=== PATIENT | male | born 2000 | race Hispanic/Latino ===

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

== ENCOUNTER → 2021-12-21 08:34 | Outpatient (CLI) | payer OTHER, MEDICAID, SELFPAY ==
--- NOTE | 2021-12-21 08:35 | DI.RAD.S_ITS ---
PROCEDURE: XR ANKLE LT MIN 3V INDICATIONS: left ankle pain TECHNIQUE: 3 views of the ankle were acquired. COMPARISON: None. FINDINGS: Bones: No fractures or dislocations. Ankle mortise is normally aligned. No suspicious bony lesions. Small dorsal and plantar calcaneal bone spurs. Mild tibiotalar and midfoot osteoarthritis. Soft tissues: No tibiotalar joint effusion. Achilles tendon appears normal. IMPRESSION: No fracture. No acute osseous lesion. If symptoms and/or clinical suspicion for pathology persists, further assessment with repeat radiographs (7-10 days) or advanced imaging (e.g. CT, MRI or bone scan) should be considered. Mild osteoarthritis. Small calcaneal bone spurs. Dictated by: Celine Sanderson MD, PhD on 12/21/2021 at 9:59 Approved by: Celine Sanderson MD, PhD on 12/21/2021 at 10:00
== END ==
PROVIDERS: Family Provider Pediatrics; PCP Pediatrics; Referring Provider Nurse Practitioner Family; Visit Provider Nurse Practitioner Family
DX: S96.912A Strain of unspecified muscle and tendon at ankle and foot level, left foot, initial encounter (principal); M19.072 Primary osteoarthritis, left ankle and foot; M77.32 Calcaneal spur, left foot; X58.XXXA Exposure to other specified factors, initial encounter
CPT/HCPCS: 73610

== ENCOUNTER → 2022-03-22 14:25 | Outpatient (CLI) | payer OTHER, MEDICAID, SELFPAY ==
[2022-03-22 15:29] LABS: Hemoglobin A1C% w Est Avg Glu 5.6 % (4.0-6.0)
[2022-03-22 16:13] LABS: Alanine Aminotransferase 33 IU/L (<50); Albumin 4.4 g/dL (3.5-5.0); Albumin Globulin Ratio 1.1 (1.0-2.8); Alkaline Phosphatase 92 U/L (38-126); Aspartate Aminotransferase 26 IU/L (17-59); BUN Creatinine Ratio 16.9 (6-22); Bilirubin Total 0.6 mg/dL (0.2-1.3); Blood Urea Nitrogen 12 mg/dL (9-20); Calcium 8.6 mg/dL (8.4-10.2); Carbon Dioxide 24 mmol/L (22-32); Chloride 105 mmol/L (98-107); Cholesterol 164 mg/dL (140-199); Estimated Glomerular Filt Rate > 60 mL/min (>60); Globulin 3.9 g/dL (1.7-4.1); Glucose 92 mg/dL (70-100); HDL Cholesterol 32 mg/dL (40-60); HEMOLYSIS < 15 (0-50); LDL Cholesterol Calculated 117 mg/dL (<100); Potassium 4.1 mmol/L (3.4-5.1); Sodium 139 mmol/L (137-145); Total Protein 8.3 g/dL (6.3-8.2); Triglycerides 76 mg/dL (35-150)
== END ==
PROVIDERS: Family Provider Pediatrics; Referring Provider Registered Nurse Diabetes Educator; Visit Provider Registered Nurse Diabetes Educator
DX: Z00.00 Encounter for general adult medical examination without abnormal findings (principal); Z68.42 Body mass index [BMI] 45.0-49.9, adult
CPT/HCPCS: 36415; 80053; 80061; 83036; 84443

== ENCOUNTER → 2022-05-02 13:19 | Outpatient (CLI) | payer OTHER, MEDICAID, SELFPAY ==
--- NOTE | 2022-05-02 13:20 | DI.RAD.S_ITS ---
PROCEDURE: XR LUMBAR SPINE MIN 4V INDICATIONS: eval RLE radiculopathy and R hip pain TECHNIQUE: 5 views of the lumbar spine acquired, including flexion and extension views. COMPARISON: None. FINDINGS: Bones: 5 nonrib-bearing vertebrae are present. There is normal bony alignment. No vertebral body compression fractures. No suspicious bony lesions. Soft tissues: Overlying bowel gas pattern is normal. No suspicious soft tissue calcifications. Oblique views unremarkable IMPRESSION: Unremarkable lumbar spine radiographs Approved by: Ramón Lacy M.D. on 05/02/2022 at 17:19
--- NOTE | 2022-05-02 13:20 | DI.RAD.S_ITS ---
PROCEDURE: XR HIP W PEL IF DONE RT 2V INDICATIONS: eval RLE radiculopathy and R hip pain TECHNIQUE: 2 views of the hip were acquired. COMPARISON: [facility], , XR HIP W PEL IF DONE RT 2V, 03/17/2018, 14:31. FINDINGS: Bones: No fractures or dislocations. No suspicious bony lesions. The visualized pelvic ring appears intact. Soft tissues: No suspicious soft tissue calcifications or masses. IMPRESSION: Unremarkable right hip radiographs Approved by: Ramón Lacy M.D. on 05/02/2022 at 17:36
== END ==
PROVIDERS: Family Provider Pediatrics; Referring Provider Registered Nurse Diabetes Educator; Visit Provider Registered Nurse Diabetes Educator
DX: M54.10 Radiculopathy, site unspecified (principal); G89.29 Other chronic pain; M25.551 Pain in right hip
CPT/HCPCS: 72110; 73502

== ENCOUNTER 2022-10-01 13:50 | Emergency (ER) | payer OTHER, MEDICAID, SELFPAY ==
[2022-10-01 14:10] VITALS: BP 164/102; PULSE 99; RESP 12; TEMP 36.5; O2SAT 99; BMI 50.2
[2022-10-01] MEDS: KETOROLAC 30 MG/ML VIAL IM (17:38)
[2022-10-01] MEDS: CYCLOBENZAPRINE 10 MG TABLET PO (17:38)
[2022-10-01] MEDS: LIDOCAINE PATCH 1 EACH ADH..PATCH TOP (17:38)
[2022-10-01 17:46] VITALS: BP 163/112; PULSE 85; O2SAT 100
--- NOTE | 2022-10-01 18:16 | ED.BACK ---
HPI - Back Pain/Injury <Tonny Diego PA-C - Last Filed: 10/01/22 20:07> General Chief Complaint: Back Pain/Injury Stated Complaint: Lower back pain, all the way down to R leg x3days Time Seen by Provider: 10/01/22 16:52 History of Present Illness HPI Narrative: 21-year-old male with past medical history lower back pain, sciatica presents to the ED with 3 days of right-sided lower back pain radiates down the back of his right leg. 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 Patient denies fevers, chills, neck pain, neck stiffness, saddle paresthesias, dysuria, urinary hesitancy, numbness, tingling, weakness. Patient is able to walk normally. Patient states that his pain has been did not improve with ibuprofen. Related Data Home Medications Medication Instructions Recorded Confirmed acetaminophen 500 mg tablet 500 mg PO Q6H PRN 03/22/22 05/17/22 (Tylenol Extra Strength) Previous Rx's Medication Instructions Recorded meloxicam 7.5 mg tablet 7.5 mg PO BID PRN back pain #60 05/17/22 tabs methocarbamol 750 mg tablet 750 mg PO QID PRN muscle spasm #30 05/17/22 tabs Allergies Allergy/AdvReac Type Severity Reaction Status Date / Time No Known Drug Allergies Allergy Verified 10/01/22 14:14 Review of Systems <Tonny Diego PA-C - Last Filed: 10/01/22 20:07> Review of Systems ROS Unobtainable: All systems reviewed & are unremarkable except as noted in HPI and below Constitutional Constitutional: Denies chills, Denies fatigue, Denies fever(s), Denies frequent falls, Denies lethargy and Denies weakness Eyes Eyes: Denies change in vision, Denies eye discharge, Denies irritation and Denies loss of vision ENT Ears, Nose, Mouth, and Throat: Denies change in voice, Denies dizziness, Denies neck pain, Denies sore throat and Denies throat swelling Cardiovascular Cardiovascular: Denies chest pain, Denies irregular heart rhythm, Denies lightheadedness, Denies palpitations, Denies dyspnea, Denies dyspnea on exertion and Denies orthopnea Respiratory Respiratory: Denies cough, Denies dyspnea, Denies dyspnea on exertion and Denies wheezing Gastrointestinal Gastrointestinal: Denies abdominal pain, Denies change in bowel habits, Denies diarrhea, Denies nausea and Denies vomiting Genitourinary Genitourinary: Denies hematuria, Denies flank pain, Denies urinary incontinence and Denies urinary urgency Musculoskeletal Musculoskeletal: Reports back pain, Denies muscle weakness, Denies neck pain, Denies numbness, Reports radiating pain into limb and Denies tingling Integumentary/Breasts Skin/Breast: Denies pruritus, Denies erythema, Denies rash and Denies wounds Neurologic Neurologic: Denies behavioral changes, Denies confusion, Denies dizziness, Denies frequent falls, Denies loss of vision, Denies numbness, Denies tingling and Denies weakness Psychiatric Psychiatric: Denies anxiety, Denies behavioral changes, Denies confusion, Denies depression, Denies homicidal ideation and Denies suicidal ideation Endocrine Endocrine: Denies fatigue, Denies flushing and Denies palpitations Hematologic/Lymphatic Hematologic/Lymphatic: Denies easy bruising Allergic/Immunologic Allergic/Immunologic: Denies urticaria, Denies throat swelling and Denies wheezing Patient History <Tonny Diego PA-C - Last Filed: 10/01/22 20:07> Surgical History Anesthesia History of ankle surgery (~2012) Social History Smoking Status: Never smoker Smoking Status: Never smoker Substance Use Type: does not use Exam <Tonny Diego PA-C - Last Filed: 10/01/22 20:07> Narrative Exam Narrative: Const General:?cooperative, healthy appearing and comfortable [facility] Head:?normal to inspection Ears:?hearing grossly normal bilaterally Nose:?external nose normal Face and sinus:?normal facial exam and sinuses nontender Mouth:?oral mucosae normal Throat:?posterior oropharynx normal Eyes General:?appearance normal, both eyes and all related structures Neck Neck:?normal visual inspection and no lymphadenopathy noted Resp Effort & Inspection:?normal respiratory effort Auscultation:?clear to auscultation bilaterally Cardio Rate:?regular rate Rhythm:?regular rhythm Musculoskeletal No midline tenderness to palpation. No paraspinal tenderness to palpation. No bruising, deformities. Positive SLR. Gait is normal. Strength and sensation intact. Full range of motion. Patient is neurovascularly intact. Neuro General:?patient alert, patient awake and patient oriented x3 Initial Vital Signs Initial Vital Signs: Vital Signs Temperature 97.7 F 10/01/22 14:10 Pulse Rate 99 H 10/01/22 14:10 Respiratory Rate 12 10/01/22 14:10 Blood Pressure 164/102 H 10/01/22 14:10 Pulse Oximetry 99 10/01/22 14:10 Oxygen Delivery Method Room Air 10/01/22 14:10 <Nba Muhammad DO - Last Filed: 10/08/22 07:33> Initial Vital Signs Initial Vital Signs: Vital Signs Temperature 97.7 F 10/01/22 14:10 Pulse Rate 99 H 10/01/22 14:10 Respiratory Rate 12 10/01/22 14:10 Blood Pressure 164/102 H 10/01/22 14:10 Pulse Oximetry 99 10/01/22 14:10 Oxygen Delivery Method Room Air 10/01/22 14:10 Course <Tonny Diego PA-C - Last Filed: 10/01/22 20:07> Orders Ordered: Discontinued Medications Cyclobenzaprine HCl (Cyclobenzaprine 10 Mg Tablet) 10 mg PO NOW ONE Stop: 10/01/22 17:26 Last Admin: 10/01/22 17:38 Dose: 10 mg Documented By: VERITO Ketorolac Tromethamine (Ketorolac 30 Mg/Ml Vial) 30 mg IM NOW ONE Stop: 10/01/22 17:26 Last Admin: 10/01/22 17:38 Dose: 30 mg Documented By: VERITO Lidocaine (Lidocaine Patch 1 Each Adh..Patch) 1 each TOP NOW ONE Stop: 10/01/22 17:26 Last Admin: 10/01/22 17:38 Dose: 1 each Documented By: RL Vital Signs Vital signs: Vital Signs - 8 hr 10/01/22 14:10 10/01/22 17:46 Temperature 97.7 F Pulse Rate 99 H 85 Respiratory Rate 12 Blood Pressure 164/102 H 163/112 H Pulse Oximetry 99 100 Oxygen Delivery Method Room Air Room Air <Nba Muhammad DO - Last Filed: 10/08/22 07:33> Orders Ordered: Discontinued Medications Cyclobenzaprine HCl (Cyclobenzaprine 10 Mg Tablet) 10 mg PO NOW ONE Stop: 10/01/22 17:26 Last Admin: 10/01/22 17:38 Dose: 10 mg Documented By: VERITO Ketorolac Tromethamine (Ketorolac 30 Mg/Ml Vial) 30 mg IM NOW ONE Stop: 10/01/22 17:26 Last Admin: 10/01/22 17:38 Dose: 30 mg Documented By: VERITO Lidocaine (Lidocaine Patch 1 Each Adh..Patch) 1 each TOP NOW ONE Stop: 10/01/22 17:26 Last Admin: 10/01/22 17:38 Dose: 1 each Documented By: RL Vital Signs Vital signs: Vital Signs - 8 hr 10/01/22 14:10 10/01/22 17:46 Temperature 97.7 F Pulse Rate 99 H 85 Respiratory Rate 12 Blood Pressure 164/102 H 163/112 H Pulse Oximetry 99 100 Oxygen Delivery Method Room Air Room Air MDM - Back Pain/Injury <Tonny Diego PA-C - Last Filed: 10/01/22 20:07> Lab Data Labs: Urine Dip Bedside Urine Glucose Negative Bedside Urine Bilirubin - Negative Bedside Urine Ketone - Negative Urine Specific [place] 1.015 Bedside Urine Occult Blood - Negative Bedside Urine pH 7.0 Bedside Urine Protein - Negative Bedside Urine Urobilinogen - Negative Bedside Urine Nitrite - Negative Bedside Urine Leukocytes - Negative Esterase MDM Narrative Medical decision making narrative: 21-year-old male with past medical history lower back pain, sciatica presents to the ED with 3 days of right-sided lower back pain radiates down the back of his right leg. Physical exam and history is consistent with musculoskeletal sprain/strain. There is no red flag symptoms. Will treat with ketorolac, lidocaine patch, Flexeril. Will reassess. Patient's symptoms improved with medications. Prescribed Flexeril. Recommend follow-up with PCP for PT referral. ED return precautions were discussed with patient. Patient verbalized understanding. Medical records reviewed: Yes <Nba Muhammad DO - Last Filed: 10/08/22 07:33> Lab Data Labs: Urine Dip Bedside Urine Glucose Negative Bedside Urine Bilirubin - Negative Bedside Urine Ketone - Negative Urine Specific [place] 1.015 Bedside Urine Occult Blood - Negative Bedside Urine pH 7.0 Bedside Urine Protein - Negative Bedside Urine Urobilinogen - Negative Bedside Urine Nitrite - Negative Bedside Urine Leukocytes - Negative Esterase Discharge Plan Departure Patient Disposition: Home Clinical Impression: Lower back pain Instructions: DI for Low Back Pain Activity Restrictions/Additional Instructions: You were evaluated in the ED today for lower back pain. Your symptoms are likely due to a musculoskeletal sprain/strain from the weightlifting. Your symptoms improved with the lidocaine patch, Flexeril, Toradol. You may use Salonpas which is an [id number] lidocaine patch. You are being prescribed Flexeril for the next few days. You may take it with ibuprofen or Aleve. Return to the ED if you note any numbness, tingling, weakness, urinary problems. Prescriptions: No Action acetaminophen [Tylenol Extra Strength] 500 mg tablet 500 mg PO Q6H PRN methocarbamol 750 mg tablet 750 mg PO QID PRN (Reason: muscle spasm) Qty: 30 3RF meloxicam 7.5 mg tablet 7.5 mg PO BID PRN (Reason: back pain) Qty: 60 2RF Referrals: Roscoe Goodwin ARNP [Primary Care Provider] - Stand Alone Forms: Patient Portal/API <Nba Muhammad DO - Last Filed: 10/08/22 07:33> Cosign ED Attending Cosignature Attestation: Dr Muhammad Co-Sign Statement: I was available for consultation during this patient's emergency department visit. This chart is signed by myself for administrative purposes only. I did not have direct contact with this patient during this visit. They were seen independently by the APC.
== END 2022-10-01 19:18 | disposition home or self-care (01) ==
PROVIDERS: Emergency Provider Student in an Organized Health Care Education/Training Program; Family Provider Pediatrics; PCP Registered Nurse Diabetes Educator
DX: M54.50 Low back pain, unspecified (principal)
CPT/HCPCS: 81003; 96372; 99283; 99284; J1885

== ENCOUNTER → 2023-04-09 10:46 | Outpatient (CLI) | payer OTHER, MEDICAID, SELFPAY ==
--- NOTE | 2023-04-09 10:47 | DI.RAD.S_ITS ---
PROCEDURE: XR LUMBAR SPINE 2-3V INDICATIONS: disks, spurs? - chronic LBP right sciatica TECHNIQUE: 3 views of the lumbar spine were acquired. COMPARISON: [facility], , XR LUMBAR SPINE MIN 4V, 05/02/2022, 13:21. FINDINGS: Bones: 5 [id number] vertebrae are present. There is normal bony alignment. No vertebral body compression fractures. No suspicious bony lesions. Soft tissues: Overlying bowel gas pattern is normal. No suspicious soft tissue calcifications. IMPRESSION: Unremarkable lumbar spine radiographs Approved by: Ramón Lacy M.D. on 04/09/2023 at 19:25
== END ==
PROVIDERS: Family Provider Pediatrics; PCP Registered Nurse Diabetes Educator; Referring Provider Pediatrics; Visit Provider Pediatrics
DX: M54.40 Lumbago with sciatica, unspecified side (principal); G89.11 Acute pain due to trauma; G89.29 Other chronic pain
CPT/HCPCS: 72100

== ENCOUNTER → 2023-08-24 10:46 | Outpatient (CLI) | payer OTHER, MEDICAID, SELFPAY ==
--- NOTE | 2023-08-24 11:09 | DI.MRI.S_ITS ---
PROCEDURE: MR LUMBAR SPINE WO CON INDICATIONS: chronic low back pain with sciatica TECHNIQUE: Noncontrast sagittal T1 spin echo and T2 fast echo, sagittal STIR, and T2 fast spin echo through the lumbar spine. In cases with scoliosis, additional coronal T2 fast spin echo may be performed. COMPARISON: [facility], CR, XR LUMBAR SPINE 2-3V, 04/09/2023, 11:00. FINDINGS: Image quality: Excellent. Alignment and Curvature: There is normal bony alignment. Bone Marrow: Marrow is of normal overall signal. No acute vertebral body compression fractures. Spinal Cord: Conus medullaris terminates at the T12-L1 level. Visualized cord demonstrates normal signal and size. Paraspinous Soft Tissues: No paravertebral masses. T12-L1: Normal appearance. L1-L2: Normal appearance. L2-L3: Facet hypertrophy. No canal stenosis or foraminal stenosis. L3-L4: Disc bulge. Facet hypertrophy. No significant canal stenosis or foraminal stenosis. L4-L5: Disc bulge. Facet hypertrophy. No significant canal stenosis or foraminal stenosis. L5-S1: There is a very large posterior disc protrusion, eccentric to the right, with associated small immediately posterior free fragment, to the right of midline. This results in high-grade canal stenosis. Facet hypertrophy. Mild right foraminal stenosis. Left foramen is patent. IMPRESSION: 1. A very large posterior disc protrusion at L5-S1 with associated free disc fragment, to the right of midline, results in high-grade canal stenosis. 2. Multilevel facet arthropathy is greater than expected for patient age. Dictated by: Germain Urias M.D. on 08/26/2023 at 8:42 Approved by: Germain Urias M.D. on 08/26/2023 at 8:47
== END ==
PROVIDERS: Family Provider Pediatrics; PCP Registered Nurse Diabetes Educator; Referring Provider Registered Nurse Diabetes Educator; Visit Provider Registered Nurse Diabetes Educator
DX: M51.17 Intervertebral disc disorders with radiculopathy, lumbosacral region (principal); M47.26 Other spondylosis with radiculopathy, lumbar region; M47.27 Other spondylosis with radiculopathy, lumbosacral region; M48.07 Spinal stenosis, lumbosacral region
CPT/HCPCS: 72148

== ENCOUNTER 2024-01-17 09:45 | Outpatient (RCR) | payer OTHER, MEDICAID, SELFPAY ==
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
--- NOTE | 2023-12-02 13:36 | PT-OP ANOTE ---
Pt cancelled last 2 appts, sick less than 24 hrs.
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
--- NOTE | 2023-12-20 12:19 | PT-OP ANOTE ---
pt cancelled PT connect text today's appt, no reason given.
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
== END 2024-03-27 09:52 | disposition home or self-care (01) ==
LOC: PHYS 09:45
PROVIDERS: Family Provider Pediatrics; PCP Registered Nurse Diabetes Educator; Referring Provider Registered Nurse Diabetes Educator; Visit Provider Registered Nurse Diabetes Educator
DX: M54.40 Lumbago with sciatica, unspecified side (principal); G89.29 Other chronic pain; M54.10 Radiculopathy, site unspecified; R53.1 Weakness
CPT/HCPCS: 97110; 97140; 97162; 97530

== ENCOUNTER 2024-11-24 13:14 | Emergency (ER) | payer OTHER, SELFPAY ==
[2024-11-24] VITALS (13 sets, daily range): BP systolic 97–168; BP diastolic 54–92; PULSE 101–126; RESP 16–30; TEMP 36.6–36.9; O2SAT 91–95; BMI 61.4
--- NOTE | 2024-11-24 13:21 | EKG_ITS ---
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
[2024-11-24] MEDS: ALBUTEROL 2.5 MG/3 ML NEB (ADULT) INH (13:34)
--- NOTE | 2024-11-24 14:06 | ED_ITS ---
HPI - SOB/Dyspnea General Chief Complaint: Shortness of Breath/Dyspnea Stated Complaint: coughing for 3 months sent from [facility] Time Seen by Provider: 11/24/24 13:29 Source: patient Mode of arrival: Wheelchair Limitations: no limitations History of Present Illness HPI Narrative: Patient here with . Complains of dyspnea for the past 3 months as well as coughing. No hemoptysis. Patient denies any chest pain. Patient states shortness of breath is worse with lying flat. Patient does have very large body habitus and he does not think he has gained any weight or has had any limb swelling edema. No recent long travel. No prior history of heart attack strokes or diabetes or long travel. No history of blood clots in legs or lungs. No primary family history of coronary disease. Patient is sent here from walk- in clinic. Related Data Home Medications Medication Instructions Recorded Confirmed gabapentin 600 mg tablet 600 mg PO 3XD 09/30/23 09/30/23 Previous Rx's Medication Instructions Recorded meloxicam 15 mg tablet 15 mg PO DAILY #30 tabs 08/12/23 methocarbamol 750 mg tablet 750 mg PO QID PRN muscle spasm #30 08/12/23 tabs amlodipine 5 mg tablet 5 mg PO DAILY #90 tabs 09/30/23 phentermine 37.5 mg tablet 18.75 mg (1/2 x 37.5 mg) PO DAILY 09/30/23 #30 tabs topiramate 25 mg tablet 25 mg PO BEDTIME #120 tabs 09/30/23 cefdinir 300 mg capsule 300 mg PO BID #14 caps 11/24/24 doxycycline monohydrate 100 mg 100 mg PO BID #14 caps 11/24/24 capsule Allergies Allergy/AdvReac Type Severity Reaction Status Date / Time No Known Drug Allergies Allergy Verified 11/24/24 13:25 Review of Systems Review of Systems Narrative: GENERAL: Negative chills, fatigue, malaise, fever, sweats. 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 EYES: Pupils equal round ENT: Mucous membranes moist. NECK: Trachea midline. CARDIOVASCULAR: Regular rate and rhythm RESPIRATORY: Diminished lung sounds bilaterally. No wheezing or rhonchi. Speaking near full sentences. GASTROINTESTINAL: Abdomen soft, non-tender EXTREMITIES: No gross deformities. BACK: No flank tenderness. NEURO: AOx4. Clear speech SKIN: Warm and dry PSYCH: Not anxious, is cooperative Initial Vital Signs Initial Vital Signs: Vital Signs Temperature 98.5 F 11/24/24 13:20 Pulse Rate 126 H 11/24/24 13:20 Respiratory Rate 30 H 11/24/24 13:20 Blood Pressure 145/89 H 11/24/24 13:20 Pulse Oximetry 95 11/24/24 13:20 Oxygen Delivery Method Nasal Cannula 11/24/24 13:20 Oxygen Flow Rate 2 11/24/24 13:20 Course Orders Ordered: Discontinued Medications Albuterol (Albuterol 2.5 Mg/3 Ml Neb (Adult)) 2.5 mg INH NOW ONE Stop: 11/24/24 13:31 Last Admin: 11/24/24 13:34 Dose: 2.5 mg Documented By: ANAI Ceftriaxone Sodium 2,000 mg/ (Sodium Chloride) 100 mls @ 200 mls/hr IV NOW ONE Stop: 11/24/24 15:30 Last Infusion: 11/24/24 16:37 Dose: Infused Documented By: Admin: 11/24/24 15:53 Dose: 200 mls/hr Documented By: Azithromycin 500 mg/ Dextrose 250 mls @ 250 mls/hr IV NOW ONE Stop: 11/24/24 17:29 Last Infusion: 11/24/24 17:45 Dose: Infused Documented By: Admin: 11/24/24 16:38 Dose: 250 mls/hr Documented By: Vital Signs Vital signs: Vital Signs - 8 hr 11/24/24 13:20 11/24/24 13:25 11/24/24 13:30 Temperature 98.5 F Pulse Rate 126 H 124 H 101 H Respiratory Rate 30 H 19 19 Blood Pressure 145/89 H Pulse Oximetry 95 93 91 Oxygen Delivery Method Nasal Cannula Oxygen Flow Rate 2 Fraction of Inspired Oxygen 11/24/24 13:32 11/24/24 13:32 11/24/24 13:35 Temperature Pulse Rate 104 H 104 H Respiratory Rate 16 24 Blood Pressure 97/54 L Pulse Oximetry 93 94 Oxygen Delivery Method Nasal Cannula Oxygen Flow Rate 2 Fraction of Inspired Oxygen 28 11/24/24 13:35 11/24/24 13:35 11/24/24 14:00 Temperature Pulse Rate 102 H 118 H Respiratory Rate 19 21 Blood Pressure 99/57 L Pulse Oximetry 92 92 Oxygen Delivery Method Room Air Oxygen Flow Rate Fraction of Inspired Oxygen 11/24/24 14:00 11/24/24 14:24 11/24/24 14:31 Temperature Pulse Rate 116 H 113 H Respiratory Rate 21 18 Blood Pressure 144/81 H 148/80 H 132/66 Pulse Oximetry 94 94 93 Oxygen Delivery Method Nasal Cannula Oxygen Flow Rate 2 Fraction of Inspired Oxygen 11/24/24 15:00 11/24/24 15:37 11/24/24 16:03 Temperature Pulse Rate 111 H 118 H 115 H Respiratory Rate 22 21 21 Blood Pressure 133/77 153/79 H 153/92 H Pulse Oximetry 92 93 92 Oxygen Delivery Method Oxygen Flow Rate Fraction of Inspired Oxygen 11/24/24 17:00 Temperature Pulse Rate 112 H Respiratory Rate 21 Blood Pressure 168/81 H Pulse Oximetry 92 Oxygen Delivery Method Room Air Oxygen Flow Rate Fraction of Inspired Oxygen MDM - SOB/Dyspnea Lab Data 11/24/24 13:30 11/24/24 13:30 Labs: Lab Results 11/24/24 11/24/24 11/24/24 Range/Units 13:30 13:30 13:30 WBC 10.7 (4.5-11.0) X10^3/uL RBC 5.56 (4.5-5.9) X10^6/uL Hgb 15.1 (13.5-17.5) g/dL Hct 45.4 (41-53) % MCV 81.7 (80-100) fL MCH 27.2 (26-34) PG MCHC 33.3 (30-36) % RDW 14.5 (11.6-14.8) % Plt Count 259 (150-400) X10^3/uL Neut % (Auto) 68.0 (50-75) % Lymph % (Auto) 22.6 L (25-40) % [place] % (Auto) 8.8 (3-14) % Eos % (Auto) 0.2 L (2-4) % Baso % (Auto) 0.4 (0-2) % Neut # (Auto) 7300 H (1882-2206) /uL Lymph # (Auto) 2400 (3817-6482) /uL [place] # (Auto) 900 (0-900) /uL Eos # (Auto) 0 (0-450) /uL Baso # (Auto) 0 (0-100) /uL PT 14.4 H (9.4-12.5) SECONDS INR 1.3 (0.9-1.3) APTT 39 H (25.1-36.5) SECONDS D-Dimer 709 H (<500) ng/ml Sodium 137 (137-145) mmol/L Potassium 4.0 (3.4-5.1) mmol/L Chloride 101 (98-107) mmol/L Carbon Dioxide 26 (22-32) mmol/L BUN 12 (9-20) mg/dL Creatinine 0.88 (0.66-1.25) mg/dL Estimated GFR > 60 (>60) mL/min BUN/Creatinine Ratio 13.6 (6-22) Glucose 133 H (70-99) mg/dL Lactate 1.0 (0.7-2.1) mmol/L Calcium 8.4 (8.4-10.2) mg/dL Total Bilirubin 0.7 (0.2-1.3) mg/dL AST 42 (17-59) IU/L ALT 47 (<50) IU/L Alkaline Phosphatase 76 (38-126) U/L Total Creatine Kinase 523 H (55-170) U/L Troponin I < 0.012 (0.01-0.034) ng/mL NT-Pro-B Natriuret Pep < 20 (<125) pg/mL Total Protein 8.4 H (6.3-8.2) g/dL Albumin 4.3 (3.5-5.0) g/dL Globulin 4.1 (1.7-4.1) g/dL Albumin/Globulin Ratio 1.0 (1.0-2.8) Procalcitonin 0.131 (<0.5) ng/mL Urine Color Urine Appearance Urine pH (4.5-8.0) Ur Specific [place] (1.000-1.035) Urine Protein (Negative) Urine Glucose (UA) (Negative) g/dL Urine Ketones (NEGATIVE) Urine Occult Blood (Negative) Urine Nitrate (Negative) Urine Bilirubin (NEGATIVE) Urine Urobilinogen (0.2) E.U./dL Ur Leukocyte Esterase (NEGATIVE) Urine RBC (0-5/HPF) Urine WBC (0-5/HPF) Ur Squamous Epith Cells (0-5/HPF) Urine Bacteria (None) Ur Culture Indicated? Vol Urine Centrifuged U Opiates 300ng/mL cut (Negative) Ur Oxycodone Screen (Negative) Urine Methadone Screen (Negative) Ur Barbiturates Screen (Negative) U Tricyclic Antidepress (Negative) Ur Phencyclidine Scrn (Negative) Ur Amphetamines Screen (Negative) U Methamphetamines Scrn (Negative) Ur MDMA Scrn (Ecstasy) (Negative) U Benzodiazepines Scrn (Negative) Urine Cocaine Screen (Negative) U Marijuana (THC) Screen (Negative) Urine Specific [place] (Normal) Ur Creatinine (Normal) Chlamy pneumoniae PCR Not detected (Not Detect) Adenovirus (PCR) Not detected (Not Detect) B. pertussis DNA (PCR) Not detected (Not Detect) B.parapertussis DNA PCR Not detected (Not Detecte) Coronavirus OC43 (PCR) Not detected (Not Detect) Coronavirus HKU1 (PCR) Not detected (Not Detect) Coronavirus 229E (PCR) Not detected (Not Detect) SARS-CoV-2 (PCR) Negative Not detected (Negative) Coronavirus NL63 (PCR) Not detected (Not Detect) Human Metapneumovir PCR Not detected (Not Detect) Influenza A (RT-PCR) Flu a negative (NEGATIVE) Influenza Type A (PCR) Not detected (Not Detect) Influenza B (RT-PCR) Flu b negative (NEGATIVE) Influenza Type B (PCR) Not detected (Not Detect) M. pneumoniae (PCR) Detected H (Not Detect) Parainfluenza 1 (PCR) Not detected (Not Detect) Parainfluenza 2 (PCR) Not detected (Not Detect) Parainfluenza 3 (PCR) Not detected (Not Detect) Parainfluenza 4 (PCR) Not detected (Not Detect) RSV (PCR) Negative Not detected (Negative) Entero/Rhino (PCR) Not detected (Not Detect) 11/24/24 11/24/24 Range/Units 15:03 15:03 WBC (4.5-11.0) X10^3/uL RBC (4.5-5.9) X10^6/uL Hgb (13.5-17.5) g/dL Hct (41-53) % MCV (80-100) fL MCH (26-34) PG MCHC (30-36) % RDW (11.6-14.8) % Plt Count (150-400) X10^3/uL Neut % (Auto) (50-75) % Lymph % (Auto) (25-40) % [place] % (Auto) (3-14) % Eos % (Auto) (2-4) % Baso % (Auto) (0-2) % Neut # (Auto) (3109-4860) /uL Lymph # (Auto) (0477-8849) /uL [place] # (Auto) (0-900) /uL Eos # (Auto) (0-450) /uL Baso # (Auto) (0-100) /uL PT (9.4-12.5) SECONDS INR (0.9-1.3) APTT (25.1-36.5) SECONDS D-Dimer (<500) ng/ml Sodium (137-145) mmol/L Potassium (3.4-5.1) mmol/L Chloride (98-107) mmol/L Carbon Dioxide (22-32) mmol/L BUN (9-20) mg/dL Creatinine (0.66-1.25) mg/dL Estimated GFR (>60) mL/min BUN/Creatinine Ratio (6-22) Glucose (70-99) mg/dL Lactate (0.7-2.1) mmol/L Calcium (8.4-10.2) mg/dL Total Bilirubin (0.2-1.3) mg/dL AST (17-59) IU/L ALT (<50) IU/L Alkaline Phosphatase (38-126) U/L Total Creatine Kinase (55-170) U/L Troponin I (0.01-0.034) ng/mL NT-Pro-B Natriuret Pep (<125) pg/mL Total Protein (6.3-8.2) g/dL Albumin (3.5-5.0) g/dL Globulin (1.7-4.1) g/dL Albumin/Globulin Ratio (1.0-2.8) Procalcitonin (<0.5) ng/mL Urine Color Yellow Urine Appearance Clear Urine pH 6.5 Normal (4.5-8.0) Ur Specific [place] 1.010 (1.000-1.035) Urine Protein 1+ H (Negative) Urine Glucose (UA) Negative (Negative) g/dL Urine Ketones Negative (NEGATIVE) Urine Occult Blood Trace-intact (Negative) Urine Nitrate Negative (Negative) Urine Bilirubin Negative (NEGATIVE) Urine Urobilinogen 1.0 (0.2) E.U./dL Ur Leukocyte Esterase Negative (NEGATIVE) Urine RBC 0-1/hpf (0-5/HPF) Urine WBC 0-1/hpf (0-5/HPF) Ur Squamous Epith Cells 0-1 /hpf (0-5/HPF) Urine Bacteria Occasional (0-1) (None) Ur Culture Indicated? Cult not indicated Vol Urine Centrifuged 10ml (spun) U Opiates 300ng/mL cut Negative (Negative) Ur Oxycodone Screen Negative (Negative) Urine Methadone Screen Negative (Negative) Ur Barbiturates Screen Negative (Negative) U Tricyclic Antidepress Negative (Negative) Ur Phencyclidine Scrn Negative (Negative) Ur Amphetamines Screen Negative (Negative) U Methamphetamines Scrn Negative (Negative) Ur MDMA Scrn (Ecstasy) Negative (Negative) U Benzodiazepines Scrn Negative (Negative) Urine Cocaine Screen Negative (Negative) U Marijuana (THC) Screen Negative (Negative) Urine Specific [place] Normal (Normal) Ur Creatinine Normal (Normal) Chlamy pneumoniae PCR (Not Detect) Adenovirus (PCR) (Not Detect) B. pertussis DNA (PCR) (Not Detect) B.parapertussis DNA PCR (Not Detecte) Coronavirus OC43 (PCR) (Not Detect) Coronavirus HKU1 (PCR) (Not Detect) Coronavirus 229E (PCR) (Not Detect) SARS-CoV-2 (PCR) (Negative) Coronavirus NL63 (PCR) (Not Detect) Human Metapneumovir PCR (Not Detect) Influenza A (RT-PCR) (NEGATIVE) Influenza Type A (PCR) (Not Detect) Influenza B (RT-PCR) (NEGATIVE) Influenza Type B (PCR) (Not Detect) M. pneumoniae (PCR) (Not Detect) Parainfluenza 1 (PCR) (Not Detect) Parainfluenza 2 (PCR) (Not Detect) Parainfluenza 3 (PCR) (Not Detect) Parainfluenza 4 (PCR) (Not Detect) RSV (PCR) (Negative) Entero/Rhino (PCR) (Not Detect) Imaging Data CT scan - chest: Radiologist's Impression: [place] [address] CT Scan Report Signed Patient: Ronnell Dhillon MR#: [id number] : 2000 Acct:[id number] Age/Sex: 23 / M Date of Service: 11/24/24 Loc: ED Accession Number: [id number] Procedure: CT angio chest PE protocol Ordering Provider: Edu Ely MD PROCEDURE: CT ANGIO CHEST PE PROTOCOL INDICATIONS: Dyspnea/tachycardia TECHNIQUE: After the administration of intravenous contrast, 2 mm thick sections acquired from the pulmonary apices to the posterior costophrenic angles. 3-dimensional maximum intensity projection (MIP) coronal and sagittal reformats were then acquired through the thorax. For radiation dose reduction, the following was used: automated exposure control, adjustment of mA and/or kV according to patient size. COMPARISON: None. FINDINGS: Image quality: Diagnostic. Pulmonary arteries: Pulmonary arteries are normal in size, and demonstrate no intraluminal filling defects to suggest central pulmonary embolism. Bilateral segmental and subsegmental pulmonary artery branches are suboptimally opacified. Lower Neck: No enlarged lymph nodes. Thyroid: No thyroid nodules which require sonographic follow up, per consensus guidelines. Axillae: No enlarged lymph nodes. Chest Wall: Unremarkable. Bones: No aggressive appearing bony lesions. Lungs and Pleura: No pneumothorax or pleural effusions. Moderate to large size airspace consolidation is seen involving superior segment of right lower lobe along right major fissure. Smaller ill-defined airspace opacities also seen scattered in posterior and medial aspect of bilateral lower lobes as well as posterior aspect of right upper lobe. Heart: Heart size is normal. No pericardial effusion. Thoracic Vessels: No aortic aneurysm. Mediastinum and [place]: Enlarged mediastinal lymph nodes measures up to 1.1 cm in size in right paratracheal space. Esophagus: No wall thickening. No hiatal hernia. Upper Abdomen: Visualized upper abdomen solid organs and bowel loops appear normal. Severe hepatic steatosis is seen. IMPRESSION: 1. Suboptimal opacification of pulmonary arteries. No central pulmonary embolus. Distal subsegmental pulmonary artery branch emboli cannot be excluded. No thoracic aortic aneurysm or gross dissection. 2. Moderate to large size right lower lobe infiltrate. Additional smaller scattered infiltrates in posterior aspect of right upper lobe and bilateral lower lobes. No pleural effusion or pneumothorax. 3. Enlarged right paratracheal lymph node likely reactive in nature. No pericardial effusion. Dictated by: Freddy Shahid M.D. on 11/24/2024 at 14:37 Approved by: Freddy Shahid M.D. on 11/24/2024 at 14:43 [facility] Narrative Medical decision making narrative: Patient here with . Complains of dyspnea for the past 3 months as well as coughing. No hemoptysis. Patient denies any chest pain. Patient states shortness of breath is worse with lying flat. Patient does have very large body habitus and he does not think he has gained any weight or has had any limb swelling edema. No recent long travel. No prior history of heart attack strokes or diabetes or long travel. No history of blood clots in legs or lungs. No primary family history of coronary disease. Patient is sent here from walk- in clinic. After history and exam, CBC CMP troponin D-dimer BNP EKG chest x-ray, possible CT but need to check patient's dimensions 1st. [facility] Medical records reviewed: No recent visit here for this complaint. Differential considered: Includes but not limited to pulmonary embolism pneumonia dehydration STEMI non-STEMI Lab Test results independently reviewed as above. Pertinent findings: WBC 10.7 hemoglobin 15.1 INR 1.3 sodium 137 potassium 4.0 BUN 12 creatinine 0.88 GFR greater than 60 D-dimer 709 troponin less than 0.012 BNP less than 20, drug screen negative. Procalcitonin 0.131, respiratory panel positive mycoplasma Independently reviewed EKG sinus tachycardia rate 123 otherwise normal EKG Imaging studies independently reviewed: CT chest no pulmonary embolism definitively seen, however there is patchy bilateral infiltrates Consultations: 4:[address] Verduzco, hospitalist, has seen patient at bedside. He complete evaluation and physical exam and walked patient himself in the hallway. Patient does not want to be admitted. Dr. Aguero has instructed for patient to be discharged home on cefdinir and doxycycline for 7 days. Re-evaluations: 3:31 p.m.. Patient in no distress at this time. Is on 2 L nasal cannula at 93%. Speaking full sentences. Reviewed with patient and results. He does have pneumonia. 4:15 p.m.. Patient does not want to be admitted. He did talk to Dr. Verduzco. Return precautions reviewed. He desires discharge home Discussion: Appropriate for possible admission as patient is tachypneic and tachycardic with his pneumonia. Antibiotics have been started. Dr. Verduzco, did see patient. Patient desires discharge home now. Return precautions reviewed with patient and . They desire discharge home. Diagnosis: Community acquired pneumonia Discharge Plan Departure Patient Disposition: Home Clinical Impression: Infection, mycoplasma Community acquired pneumonia Qualifiers: Laterality: unspecified laterality Qualified Code(s): J18.9 - Pneumonia, unspecified organism Instructions: DI for Pneumonia -- Adult Activity Restrictions/Additional Instructions: You have declined admission in the hospital. Prescription antibiotics have been provided for you. Please continue them tomorrow. First doses were given today. Please see family doctor in a week for re-evaluation. Return immediately if worse if any questions or concerns or if any trouble breathing. Please call provided primary care provider phone number to obtain family doctor, Prescriptions: New doxycycline monohydrate 100 mg capsule 100 mg PO BID Qty: 14 0RF cefdinir 300 mg capsule 300 mg PO BID Qty: 14 0RF No Action gabapentin 600 mg tablet 600 mg PO 3XD amlodipine 5 mg tablet 5 mg PO DAILY Qty: 90 0RF topiramate 25 mg tablet 25 mg PO BEDTIME Qty: 120 2RF Rx Instructions: After 7 days if no side effects increase to 1 tab twice daily, after 7 more days take 1 tab in morning and 2 tabs at bedtime, after 7 more days take 2 tabs twice daily phentermine 37.5 mg tablet 18.75 mg PO DAILY Qty: 30 1RF Rx Instructions: must administer 30 minutes before or 1-2 hours after breakfast meloxicam 15 mg tablet 15 mg PO DAILY Qty: 30 3RF methocarbamol 750 mg tablet 750 mg PO QID PRN (Reason: muscle spasm) Qty: 30 3RF Referrals: Roscoe Goodwin ARNP [Primary Care Provider] - Stand Alone Forms: Patient Portal/API/Survey
--- NOTE | 2024-11-24 14:09 | DI.CT.S_ITS ---
PROCEDURE: CT ANGIO CHEST PE PROTOCOL INDICATIONS: Dyspnea/tachycardia TECHNIQUE: After the administration of intravenous contrast, 2 mm thick sections acquired from the pulmonary apices to the posterior costophrenic angles. 3-dimensional maximum intensity projection (MIP) coronal and sagittal reformats were then acquired through the thorax. For radiation dose reduction, the following was used: automated exposure control, adjustment of mA and/or kV according to patient size. COMPARISON: None. FINDINGS: Image quality: Diagnostic. Pulmonary arteries: Pulmonary arteries are normal in size, and demonstrate no intraluminal filling defects to suggest central pulmonary embolism. Bilateral segmental and subsegmental pulmonary artery branches are suboptimally opacified. Lower Neck: No enlarged lymph nodes. Thyroid: No thyroid nodules which require sonographic follow up, per consensus guidelines. Axillae: No enlarged lymph nodes. Chest Wall: Unremarkable. Bones: No aggressive appearing bony lesions. Lungs and Pleura: No pneumothorax or pleural effusions. Moderate to large size airspace consolidation is seen involving superior segment of right lower lobe along right major fissure. Smaller ill-defined airspace opacities also seen scattered in posterior and medial aspect of bilateral lower lobes as well as posterior aspect of right upper lobe. Heart: Heart size is normal. No pericardial effusion. Thoracic Vessels: No aortic aneurysm. Mediastinum and [place]: Enlarged mediastinal lymph nodes measures up to 1.1 cm in size in right paratracheal space. Esophagus: No wall thickening. No hiatal hernia. Upper Abdomen: Visualized upper abdomen solid organs and bowel loops appear normal. Severe hepatic steatosis is seen. IMPRESSION: 1. Suboptimal opacification of pulmonary arteries. No central pulmonary embolus. Distal subsegmental pulmonary artery branch emboli cannot be excluded. No thoracic aortic aneurysm or gross dissection. 2. Moderate to large size right lower lobe infiltrate. Additional smaller scattered infiltrates in posterior aspect of right upper lobe and bilateral lower lobes. No pleural effusion or pneumothorax. 3. Enlarged right paratracheal lymph node likely reactive in nature. No pericardial effusion. Dictated by: Freddy Shahid M.D. on 11/24/2024 at 14:37 Approved by: Freddy Shahid M.D. on 11/24/2024 at 14:43
[2024-11-24 14:13] LABS: Add Manual Diff / Slide Review NO; Basophils Absolute Auto 0 /uL (0-100); Basophils Percent Auto 0.4 % (0-2); Eosinophils Absolute Auto 0 /uL (0-450); Eosinophils Percent Auto 0.2 % (2-4); Hematocrit 45.4 % (41-53); Hemoglobin 15.1 g/dL (13.5-17.5); Lymphocytes Absolute Auto 2400 /uL (1100-4500); Lymphocytes Percent Auto 22.6 % (25-40); Mean Corpuscular HGB Conc 33.3 % (30-36); Mean Corpuscular Hemoglobin 27.2 PG (26-34); Mean Corpuscular Volume 81.7 fL (80-100); Monocytes Absolute Auto 900 /uL (0-900); Monocytes Percent Auto 8.8 % (3-14); Neutrophils Absolute Auto 7300 /uL (1500-7000); Platelet Count 259 X10^3/uL (150-400); Red Blood Cell Count 5.56 X10^6/uL (4.5-5.9); Red Cell Distribution Width 14.5 % (11.6-14.8); White Blood Cell Count 10.7 X10^3/uL (4.5-11.0)
[2024-11-24 14:15] LABS: COVID-19 CEPHEID 4-PLEX PCR Negative (Negative); INR 1.3 (0.9-1.3); Influenza A - CEPHEID Flu A NEGATIVE (NEGATIVE); Influenza B - CEPHEID Flu B NEGATIVE (NEGATIVE); Prothrombin Time 14.4 SECONDS (9.4-12.5); Respiratory Syncytial Virus Negative (Negative)
[2024-11-24 14:16] LABS: D Dimer 709 ng/ml (<500)
[2024-11-24 14:17] LABS: PTT Partial Thromboplastin Tim 39 SECONDS (25.1-36.5)
[2024-11-24 14:19] LABS: Alanine Aminotransferase 47 IU/L (<50); Albumin 4.3 g/dL (3.5-5.0); Alkaline Phosphatase 76 U/L (38-126); Aspartate Aminotransferase 42 IU/L (17-59); BUN Creatinine Ratio 13.6 (6-22); Bilirubin Total 0.7 mg/dL (0.2-1.3); Blood Urea Nitrogen 12 mg/dL (9-20); Calcium 8.4 mg/dL (8.4-10.2); Carbon Dioxide 26 mmol/L (22-32); Chloride 101 mmol/L (98-107); Creatine Kinase 523 U/L (55-170); Estimated Glomerular Filt Rate > 60 mL/min (>60); Globulin 4.1 g/dL (1.7-4.1); Glucose 133 mg/dL (70-99); HEMOLYSIS < 15 (0-50); Sodium 137 mmol/L (137-145); Total Protein 8.4 g/dL (6.3-8.2)
[2024-11-24 14:31] LABS: NT-proBNP (BNP-Adult 18+) < 20 pg/mL (<125); Troponin I < 0.012 ng/mL (0.01-0.034)
[2024-11-24 14:36] LABS: Procalcitonin 0.131 ng/mL (<0.5)
[2024-11-24 15:42] LABS: Appearance Urine UA CLEAR; Bilirubin Urine UA NEGATIVE (NEGATIVE); Color Urine UA YELLOW; Glucose Urine UA NEGATIVE (Negative); Ketones Urine UA NEGATIVE (NEGATIVE); Leukocyte Esterase Urine UA NEGATIVE (NEGATIVE); Nitrite Urine UA NEGATIVE (Negative); Occult Blood Urine UA TRACE-INTACT (Negative); Protein Urine UA 1+ (Negative); pH Urine UA 6.5 (4.5-8.0)
[2024-11-24 15:44] LABS: UR Morphine/Opiate cutoff 300 Negative (Negative); Ur Creatinine Normal (Normal); Ur Specific Gravity Normal (Normal); Urine Amphetamines Negative (Negative); Urine Barbiturates Negative (Negative); Urine Benzodiazepines Negative (Negative); Urine Cocaine Negative (Negative); Urine MDMA Negative (Negative); Urine Methadone Negative (Negative); Urine Methamphetamines Negative (Negative); Urine Oxycodone Negative (Negative); Urine Phencyclidine Negative (Negative); Urine Tetrahydrocannabinol Negative (Negative); Urine Tricyclic Antidepressant Negative (Negative); Urine pH Normal (Normal)
[2024-11-24 15:52] LABS: Bacteria Urine Occasional (0-1); Culture Indicated Urine Cult Not Indicated; RBC Urine 0-1/HPF (0-5/HPF); Squamous Epithelial Cell Urine 0-1 /HPF (0-5/HPF); Urine Volume 10mL (spun); WBC Urine 0-1/HPF (0-5/HPF)
[2024-11-24] MEDS: cefTRIAXone 2,000 MG in SODIUM CHLORIDE 0.9% 100 ML 200 MG IV (15:53)
--- NOTE | 2024-11-24 16:15 | PM.CN ---
History of Present Illness Consult details Date Patient Seen: 11/24/24 Time Patient Seen: 16:15 Chief complaint: coughing for [address] [facility] Narrative: 23 M presents with worsening dyspnea and cough over the past week. He has had a chronic cough for the past 3 months after a viral syndrome in August. Since then he has had a chronic cough which has been dry. Over the past weeks reports subjective fever, nausea and vomiting (resolved 3 days ago but no appetite currently), and diarrhea. For the past week he has felt short of breath, primarily with exertion. He denies any chest pain, headache, rash. He was previously on weight loss medications but stopped these recently. Patient was not documented as hypoxic on room air, did occasionally drop to 90s with quick recovery on my evalutation but felt less dyspnic with 2L O2. Medicine was asked to evaluate for admission. I came to evaluate him in the emergency room. CT was reviewed which did show a mod-large RLL infiltrate. Upon my evaluation his O2 saturations were 92-94% on room air at rest. I had the patient ambulate about 50 feet by himself. Upon return his HR returned to baseline within 1 minute and O2 saturation was 92% after ambulation. Discussed discharge vs observation admission, patient elected for discharge home at this time. Meds Home Medications and Allergies Home Medications Medication Instructions Recorded Confirmed Type meloxicam 15 mg tablet 15 mg PO DAILY #30 tabs 08/12/23 09/30/23 Rx methocarbamol 750 mg tablet 750 mg PO QID PRN muscle spasm #30 08/12/23 09/30/23 Rx tabs amlodipine 5 mg tablet 5 mg PO DAILY #90 tabs 09/30/23 09/30/23 Rx gabapentin 600 mg tablet 600 mg PO 3XD 09/30/23 09/30/23 History phentermine 37.5 mg tablet 18.75 mg (1/2 x 37.5 mg) PO DAILY 09/30/23 09/30/23 Rx #30 tabs topiramate 25 mg tablet 25 mg PO BEDTIME #120 tabs 09/30/23 09/30/23 Rx cefdinir 300 mg capsule 300 mg PO BID #14 caps 11/24/24 Rx doxycycline monohydrate 100 mg 100 mg PO BID #14 caps 11/24/24 Rx capsule Allergies Allergy/AdvReac Type Severity Reaction Status Date / Time No Known Drug Allergies Allergy Verified 11/24/24 13:25 Review of Systems Review of Systems Narrative: All other systems reviewed with the patient and are negative unless otherwise stated. Exam Vital Signs (past 8 hours): - 11/24/24 13:20 11/24/24 13:25 11/24/24 13:30 Temperature 98.5 F Pulse Rate 126 H 124 H 101 H Respiratory Rate 30 H 19 19 Blood Pressure 145/89 H Pulse Oximetry 95 93 91 Oxygen Delivery Method Nasal Cannula Oxygen Flow Rate 2 Fraction of Inspired Oxygen 11/24/24 13:32 11/24/24 13:32 11/24/24 13:35 Temperature Pulse Rate 104 H 104 H Respiratory Rate 16 24 Blood Pressure 97/54 L Pulse Oximetry 93 94 Oxygen Delivery Method Nasal Cannula Oxygen Flow Rate 2 Fraction of Inspired Oxygen 28 11/24/24 13:35 11/24/24 13:35 11/24/24 14:00 Temperature Pulse Rate 102 H 118 H Respiratory Rate 19 21 Blood Pressure 99/57 L Pulse Oximetry 92 92 Oxygen Delivery Method Room Air Oxygen Flow Rate Fraction of Inspired Oxygen 11/24/24 14:00 Temperature Pulse Rate Respiratory Rate Blood Pressure 144/81 H Pulse Oximetry 94 Oxygen Delivery Method Nasal Cannula Oxygen Flow Rate 2 Fraction of Inspired Oxygen Fraction of Inspired Oxygen 28 SaO2/FiO2 Ratio 335 Oxygen Delivery Method Nasal Cannula Oxygen Flow Rate 2 Narrative Exam Narrative: General:? Obese male, Patient is well developed and well nourished, in no distress at this time but is slightly dyspnic. HEENT:? Normocephalic, atraumatic, extraocular muscles intact, oral pharynx is clear and mucous membranes are moist. Neck: supple and symmetric, trachea is midline, no cervical adenopathy. Negative for JVD Lungs:? Dyspnic with minimal exertion but ambulatory, RLL rhonchi, no wheezing. CV: Tachycardic, regular rhythm, no m/r/g Abdomen: S NT ND. Musculoskeletal:? Muscle strength and tone are equal within normal limits, no deformity. Extremities: No edema or joint effusions. No cyanosis or clubbing. Skin:? Pale,? Warm to touch,dry and intact without rashes, ulcerations or petechiae.? Neuro:? Alert and orientated x3,? sensation to touch intact in all extremities, no gross deficits noted of cranial nerves. Psych:? Patient has a well-kept appearance, appropriate affect, mental status attitude thought context and judgment are appropriate for age. Objective ECG Impression: Sinus tachycardia with no evidence for acute ischemia. Labs 11/24/24 13:30 11/24/24 13:30 Labs: Laboratory Results - last 24 hr 11/24/24 11/24/24 11/24/24 13:30 15:03 15:03 WBC 10.7 RBC 5.56 Hgb 15.1 Hct 45.4 MCV 81.7 MCH 27.2 MCHC 33.3 RDW 14.5 Plt Count 259 Neut % (Auto) 68.0 Lymph % (Auto) 22.6 L [place] % (Auto) 8.8 Eos % (Auto) 0.2 L Baso % (Auto) 0.4 Neut # (Auto) 7300 H Lymph # (Auto) 2400 [place] # (Auto) 900 Eos # (Auto) 0 Baso # (Auto) 0 PT 14.4 H INR 1.3 APTT 39 H D-Dimer 709 H Sodium 137 Potassium 4.0 Chloride 101 Carbon Dioxide 26 BUN 12 Creatinine 0.88 Estimated GFR > 60 BUN/Creatinine Ratio 13.6 Glucose 133 H Lactate 1.0 Calcium 8.4 Total Bilirubin 0.7 AST 42 ALT 47 Alkaline Phosphatase 76 Total Creatine Kinase 523 H Troponin I < 0.012 NT-Pro-B Natriuret Pep < 20 Total Protein 8.4 H Albumin 4.3 Globulin 4.1 Albumin/Globulin Ratio 1.0 Procalcitonin 0.131 Urine Color Yellow Urine Appearance Clear Urine pH 6.5 Normal Ur Specific [place] 1.010 Urine Protein 1+ H Urine Glucose (UA) Negative Urine Ketones Negative Urine Occult Blood Trace-intact Urine Nitrate Negative Urine Bilirubin Negative Urine Urobilinogen 1.0 Ur Leukocyte Esterase Negative Urine RBC 0-1/hpf Urine WBC 0-1/hpf Ur Squamous Epith Cells 0-1 /hpf Urine Bacteria Occasional (0-1) Ur Culture Indicated? Cult not indicated Vol Urine Centrifuged 10ml (spun) U Opiates 300ng/mL cut Negative Ur Oxycodone Screen Negative Urine Methadone Screen Negative Ur Barbiturates Screen Negative U Tricyclic Antidepress Negative Ur Phencyclidine Scrn Negative Ur Amphetamines Screen Negative U Methamphetamines Scrn Negative Ur MDMA Scrn (Ecstasy) Negative U Benzodiazepines Scrn Negative Urine Cocaine Screen Negative U Marijuana (THC) Screen Negative Urine Specific [place] Normal Ur Creatinine Normal SARS-CoV-2 (PCR) Negative Influenza A (RT-PCR) Flu a negative Influenza B (RT-PCR) Flu b negative RSV (PCR) Negative [facility] Medical History (Updated 11/24/24 @ 17:44 by Edu Ely MD) Essential hypertension Morbid obesity 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 RLL community-acquired bacterial pneumonia, improved respiratory failure with hypoxia -in short this is a 23-year-old male with a fairly large sized right lower lobe pneumonia on CT imaging today. He is tachycardic and short of breath, but was not hypoxic upon my evaluation in the emergency room and his O2 saturations with ambulation were in the low 90s as well. He does not currently require any oxygen. There is no evidence currently of severe sepsis on lab evaluation including normal creatinine, platelets, and bilirubin. -given his abnormal vital signs including tachycardia and his dyspnea on exertion, which could also be related to his acute infection but could also be due to his obesity, I discussed observation overnight versus possible discharge home as he is not currently requiring supplemental oxygen. The patient elected for discharge home at this time and was counseled on returning symptoms including worsening shortness of breath, hypoxia (instructed to look into home pulse ox), fever, or chest pain. -recommend cefdinir and doxycycline as this likely represents a superimposed bacterial infection after recent viral illness. I would treat him for a week given the size of the infiltrate on imaging. -recommend PCP follow up within the week to monitor symptoms. 2. Obesitym BMI 61. Code: Full, surrogate is patient's spouse I have utilized all available immediate resources to obtain, update, or review the patient's current medications. Dispo: Discharge from ER. Additional history obtained via discussions with the ER provider and patient's spouse. These discussions contributed to the creation of the above assessment and plan. I have reviewed patient's presenting documentation, labs, and imaging personally. Time-Based Coding :: [TOTAL MINUTES] spent with patient and on the chart (including review of chart, obtaining history, exam, reviewing outside data, placing orders, documenting exam and treatment plan, and counseling patient) on [DATE].
[2024-11-24 16:30] LABS: Adenovirus Not Detected (Not Detect); B. parapertussis Not Detected (Not Detecte); Bordetella pertussis Not Detected (Not Detect); Chlamydophila pneumoniae Not Detected (Not Detect); Coronavirus 229E Not Detected (Not Detect); Coronavirus HKU1 Not Detected (Not Detect); Coronavirus NL 63 Not Detected (Not Detect); Coronavirus OC43 Not Detected (Not Detect); Human Metapneumovirus Not Detected (Not Detect); Human Rhinovirus/Enterovirus Not Detected (Not Detect); Influenza A Not Detected (Not Detect); Influenza B Not Detected (Not Detect); Mycoplasma pneumoniae Detected (Not Detect); Parainfluenza Virus 1 Not Detected (Not Detect); Parainfluenza Virus 2 Not Detected (Not Detect); Parainfluenza Virus 3 Not Detected (Not Detect); Parainfluenza Virus 4 Not Detected (Not Detect); Respiratory Syncytial Virus Not Detected (Not Detect); SARS- CoV-2 Not Detected (Not Detecte)
[2024-11-24] MEDS: AZITHROMYCIN 500 MG in DEXTROSE 5% IN WATER 250 ML 250 MG IV (16:38)
== END 2024-11-24 17:49 | disposition home or self-care (01) ==
PROVIDERS: Emergency Provider Emergency Medicine; Family Provider Pediatrics; PCP Registered Nurse Diabetes Educator
DX: J18.9 Pneumonia, unspecified organism (principal); B96.0 Mycoplasma pneumoniae [M. pneumoniae] as the cause of diseases classified elsewhere; R00.0 Tachycardia, unspecified; J15.9 Unspecified bacterial pneumonia; J96.91 Respiratory failure, unspecified with hypoxia; E66.01 Morbid (severe) obesity due to excess calories; Z68.44 Body mass index [BMI] 60.0-69.9, adult
CPT/HCPCS: 0241U; 36415; 71275; 80053; 80305; 81001; 82550; 83605; 83880; 84145; 84484; 85025; 85379; 85610; 85730; 87040; 87633; 93005; 93010; 94640; 96365; 96367; 99285; J0696; J7613; Q9967

== ENCOUNTER 2024-12-06 15:20 | Emergency (ER) | payer OTHER, SELFPAY ==
[2024-12-06] VITALS (15 sets, daily range): BP systolic 133–172; BP diastolic 77–124; PULSE 108–126; RESP 12–25; TEMP 36.9; O2SAT 94–96; BMI 59.5
--- NOTE | 2024-12-06 15:27 | DI.CT.S_ITS ---
PROCEDURE: CT HEAD/BRAIN WO CON INDICATIONS: syncope,fall face first on concrete TECHNIQUE: Noncontrast 4.5 mm thick angled axial sections acquired from the foramen magnum to the vertex, with coronal and sagittal reformats. For radiation dose reduction, the following was used: automated exposure control, adjustment of mA and/or kV according to patient size. COMPARISON: None. FINDINGS: Image quality: Diagnostic. CSF spaces: Basal cisterns are patent. No extra-axial fluid collections. Ventricles are normal in size and shape. Brain: No midline shift. No intracranial mass effect or hemorrhage. [place]-white matter interface is normal. Skull and face: Calvarium and visualized facial bones are intact, without suspicious lesions. Frontal soft tissue contusion. Sinuses: Visualized sinuses and mastoids are clear. IMPRESSION: No acute intracranial pathology. Frontal soft tissue contusion without underlying fracture. Dictated by: Bola Carey M.D. on 12/06/2024 at 16:17 Approved by: Bola Carey M.D. on 12/06/2024 at 16:18
--- NOTE | 2024-12-06 15:27 | DI.CT.S_ITS ---
PROCEDURE: CT FACIAL BONES WO CON INDICATIONS: syncope,fall face first on concrete TECHNIQUE: Noncontrast 2.5 mm thick axial images acquired from the mandible through the frontal sinuses, with coronal and sagittal reformatting. For radiation dose reduction, the following was used: automated exposure control, adjustment of mA and/or kV according to patient size. COMPARISON: None. FINDINGS: Image quality: Excellent. Bones and teeth: Orbital brownlee are intact. Sinus brownlee show no fracture or deformity. Nasal bones and septum are intact. Visualized portions of the mandible demonstrate no fractures or subluxation. Zygomatic arches are intact. Pterygoid plates are intact. Visualized portions of the skull base and auditory canals are intact. Sinuses: Paranasal sinuses are aerated, without fluid levels, mucosal thickening, or mucoceles. Mastoid air cells are aerated. Soft tissues: Anterior scalp contusion. Vascular: Visualized vascular structures appear normal in the absence of contrast. Bony vascular foramina and canals are intact. IMPRESSION: Anterior scalp contusion without underlying fracture. No air-fluid level within the sinuses. Dictated by: Bola Carey M.D. on 12/06/2024 at 16:18 Approved by: Bola Carey M.D. on 12/06/2024 at 16:19
--- NOTE | 2024-12-06 15:27 | EKG_ITS ---
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
--- NOTE | 2024-12-06 15:27 | DI.RAD.S_ITS ---
PROCEDURE: XR CHEST 1V INDICATIONS: Chest Pain TECHNIQUE: One view of the chest was acquired. COMPARISON: [facility], , CHEST 1 VIEW, 09/17/2006, 19:57. FINDINGS: Surgical changes and devices: None. Lungs and pleura: Lungs are clear. No pleural effusions or pneumothorax. Mediastinum: Mediastinal contours appear normal. Heart size is normal. Bones and chest wall: No suspicious bony lesions. Overlying soft tissues appear unremarkable. IMPRESSION: No acute cardiopulmonary abnormality is seen. Dictated by: Bola Carey M.D. on 12/06/2024 at 15:48 Approved by: Bola Carey M.D. on 12/06/2024 at 15:50
[2024-12-06 16:02] LABS: Add Manual Diff / Slide Review NO; Basophils Absolute Auto 100 /uL (0-100); Basophils Percent Auto 1.4 % (0-2); Eosinophils Absolute Auto 100 /uL (0-450); Eosinophils Percent Auto 0.9 % (2-4); Lymphocytes Absolute Auto 4000 /uL (1100-4500); Lymphocytes Percent Auto 40.5 % (25-40); Mean Corpuscular Hemoglobin 27.8 PG (26-34); Mean Corpuscular Volume 81.7 fL (80-100); Monocytes Absolute Auto 800 /uL (0-900); Monocytes Percent Auto 8.3 % (3-14); Neutrophils Absolute Auto 4800 /uL (1500-7000); Neutrophils Percent Auto 48.9 % (50-75); Platelet Count 317 X10^3/uL (150-400); Red Blood Cell Count 5.39 X10^6/uL (4.5-5.9); Red Cell Distribution Width 14.1 % (11.6-14.8); White Blood Cell Count 9.8 X10^3/uL (4.5-11.0)
[2024-12-06 16:03] LABS: INR 1.1 (0.9-1.3); Prothrombin Time 12.8 SECONDS (9.4-12.5)
[2024-12-06 16:06] LABS: PTT Partial Thromboplastin Tim 36 SECONDS (25.1-36.5)
[2024-12-06 16:08] LABS: Alanine Aminotransferase 73 IU/L (<50); Albumin 4.2 g/dL (3.5-5.0); Albumin Globulin Ratio 1.1 (1.0-2.8); Alkaline Phosphatase 77 U/L (38-126); Aspartate Aminotransferase 41 IU/L (17-59); BUN Creatinine Ratio 17.1 (6-22); Bilirubin Total 0.7 mg/dL (0.2-1.3); Blood Urea Nitrogen 14 mg/dL (9-20); Calcium 9.1 mg/dL (8.4-10.2); Carbon Dioxide 28 mmol/L (22-32); Chloride 101 mmol/L (98-107); Creatine Kinase 309 U/L (55-170); Estimated Glomerular Filt Rate > 60 mL/min (>60); Globulin 3.9 g/dL (1.7-4.1); Glucose 114 mg/dL (70-99); HEMOLYSIS < 15 (0-50); Lipase 47 U/L (23-300); Magnesium 1.8 mg/dL (1.6-2.3); Potassium 3.9 mmol/L (3.4-5.1); Sodium 138 mmol/L (137-145); Total Protein 8.1 g/dL (6.3-8.2)
[2024-12-06 16:19] LABS: NT-proBNP (BNP-Adult 18+) < 20 pg/mL (<125); Troponin I < 0.012 ng/mL (0.01-0.034)
[2024-12-06] MEDS: SODIUM CHLORIDE 0.9% 1,000 ML 1000 ML IV (18:10)
--- NOTE | 2024-12-06 18:34 | ED.SYNCOPE ---
HPI - Syncope General Chief Complaint: Syncope Stated Complaint: Pneumonia, Passed out & hit head Time Seen by Provider: 12/06/24 17:55 Source: patient Mode of arrival: Ambulatory History of Present Illness HPI narrative: Patient is a 23-year-old male obese was diagnosed with mycoplasma pneumonia on 11/24/2024. He was ultimately discharged home from the ED but thought about admission. He had a full workup including a CT angio discharged home on cefdinir and doxycycline. He reports that he he was getting better. He was given 1 week worth of antibiotics but was still coughing quite a bit saw his primary who extended his antibiotics for another week. Today he coughs so hard he fell forward passed out and hit his head. No nausea or vomiting. He says that at night he can not lay down flat because he starts coughing. He was coughing up blood tinged pink sputum. He says that since he has been sick he really has a getting around the house. He has been eating and drinking normally. He has been persistently tachycardic here but not hypoxic. Really just complains of ongoing persistent cough despite antibiotics. Related Data Previous Rx's Medication Instructions Recorded albuterol sulfate 90 mcg/actuation 2 puff inhalation Q4-6H PRN 11/30/24 aerosol inhaler shortness of breath or wheezing #8.5 grams cefdinir 300 mg capsule 300 mg PO BID #14 caps 11/30/24 doxycycline monohydrate 100 mg 100 mg PO BID #14 caps 11/30/24 capsule guaifenesin 1,200 mg tablet, 1,200 mg PO Q12H PRN cough #20 tabs 12/06/24 extended release 12 hr (Mucinex) Allergies Allergy/AdvReac Type Severity Reaction Status Date / Time No Known Drug Allergies Allergy Verified 11/30/24 09:12 Patient History Medical History Essential hypertension Morbid obesity 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 HEENT: Head atraumatic,EOMI, pupils reactive, face symmetric, moist mucous membranes CARDIOVASCULAR: Tachycardic regular no rubs or murmur RESPIRATORY: Breath sounds equal bilaterally, no wheezes rales or rhonchi. Speaks in full sentences no respiratory distress ABDOMEN: Soft, nontender. Normoactive bowel sounds all 4 quadrants. No guarding or rebound. EXTREMITIES: Normal range of motion, no clubbing or edema. Neurovascularly intact NEUROLOGICAL: Alert and oriented x4.Normal gait and speech. Cranial nerves II through XII grossly intact. SKIN: Warm, dry, no laceration, no petechiae, no rashes or lesions. Course Orders Ordered: Discontinued Medications Guaifenesin (Guaifenesin Er 600 Mg Tab) 600 mg PO NOW ONE Stop: 12/06/24 19:56 Last Admin: 12/06/24 20:09 Dose: 600 mg Documented By: LORELEI Sodium Chloride (Normal Saline 0.9%) 1,000 mls @ 1,000 mls/hr IV BOLUS ONE Stop: 12/06/24 18:58 Last Infusion: 12/06/24 19:10 Dose: Infused Documented By: Admin: 12/06/24 18:10 Dose: 1,000 mls/hr Documented By: LORELEI Vital Signs Vital signs: Vital Signs - 8 hr 12/06/24 20:00 12/06/24 20:01 12/06/24 20:01 Pulse Rate 108 H 109 H Respiratory Rate 18 25 H Blood Pressure 172/115 H Pulse Oximetry 96 96 Oxygen Delivery Method Room Air MDM - Syncope Lab Data 12/06/24 15:49 12/06/24 15:49 Labs: Lab Results 12/06/24 Range/Units 15:49 WBC 9.8 (4.5-11.0) X10^3/uL RBC 5.39 (4.5-5.9) X10^6/uL Hgb 15.0 (13.5-17.5) g/dL Hct 44.0 (41-53) % MCV 81.7 (80-100) fL MCH 27.8 (26-34) PG MCHC 34.0 (30-36) % RDW 14.1 (11.6-14.8) % Plt Count 317 (150-400) X10^3/uL Neut % (Auto) 48.9 L (50-75) % Lymph % (Auto) 40.5 H (25-40) % Sioux % (Auto) 8.3 (3-14) % Eos % (Auto) 0.9 L (2-4) % Baso % (Auto) 1.4 (0-2) % Neut # (Auto) 4800 (1108-5562) /uL Lymph # (Auto) 4000 (3525-5122) /uL Sioux # (Auto) 800 (0-900) /uL Eos # (Auto) 100 (0-450) /uL Baso # (Auto) 100 (0-100) /uL PT 12.8 H (9.4-12.5) SECONDS INR 1.1 (0.9-1.3) APTT 36 (25.1-36.5) SECONDS D-Dimer 316 (<500) ng/ml Sodium 138 (137-145) mmol/L Potassium 3.9 (3.4-5.1) mmol/L Chloride 101 (98-107) mmol/L Carbon Dioxide 28 (22-32) mmol/L BUN 14 (9-20) mg/dL Creatinine 0.82 (0.66-1.25) mg/dL Estimated GFR > 60 (>60) mL/min BUN/Creatinine Ratio 17.1 (6-22) Glucose 114 H (70-99) mg/dL Calcium 9.1 (8.4-10.2) mg/dL Magnesium 1.8 (1.6-2.3) mg/dL Total Bilirubin 0.7 (0.2-1.3) mg/dL AST 41 (17-59) IU/L ALT 73 H (<50) IU/L Alkaline Phosphatase 77 (38-126) U/L Total Creatine Kinase 309 H (55-170) U/L Troponin I < 0.012 (0.01-0.034) ng/mL NT-Pro-B Natriuret Pep < 20 (<125) pg/mL Total Protein 8.1 (6.3-8.2) g/dL Albumin 4.2 (3.5-5.0) g/dL Globulin 3.9 (1.7-4.1) g/dL Albumin/Globulin Ratio 1.1 (1.0-2.8) Lipase 47 (23-300) U/L Imaging Data Chest x-ray: Radiologist's Impression: PROCEDURE: XR CHEST 1V INDICATIONS: Chest Pain TECHNIQUE: One view of the chest was acquired. COMPARISON: [facility], , CHEST 1 VIEW, 09/17/2006, 19:57. FINDINGS: Surgical changes and devices: None. Lungs and pleura: Lungs are clear. No pleural effusions or pneumothorax. Mediastinum: Mediastinal contours appear normal. Heart size is normal. Bones and chest wall: No suspicious bony lesions. Overlying soft tissues appear unremarkable. IMPRESSION: No acute cardiopulmonary abnormality is seen. Dictated by: Bola Carey M.D. on 12/06/2024 at 15:48 Approved by: Bola Carey M.D. on 12/06/2024 at 15:50 CT scan - head: Radiologist's Impression: PROCEDURE: CT HEAD/BRAIN WO CON INDICATIONS: syncope,fall face first on concrete TECHNIQUE: Noncontrast 4.5 mm thick angled axial sections acquired from the foramen magnum to the vertex, with coronal and sagittal reformats. For radiation dose reduction, the following was used: automated exposure control, adjustment of mA and/or kV according to patient size. COMPARISON: None. FINDINGS: Image quality: Diagnostic. CSF spaces: Basal cisterns are patent. No extra-axial fluid collections. Ventricles are normal in size and shape. Brain: No midline shift. No intracranial mass effect or hemorrhage. Marino-white matter interface is normal. Skull and face: Calvarium and visualized facial bones are intact, without suspicious lesions. Frontal soft tissue contusion. Sinuses: Visualized sinuses and mastoids are clear. IMPRESSION: No acute intracranial pathology. Frontal soft tissue contusion without underlying fracture. Dictated by: Bola Carey M.D. on 12/06/2024 at 16:17 CT face: Radiologist's Impression: PROCEDURE: CT FACIAL BONES WO CON INDICATIONS: syncope,fall face first on concrete TECHNIQUE: Noncontrast 2.5 mm thick axial images acquired from the mandible through the frontal sinuses, with coronal and sagittal reformatting. For radiation dose reduction, the following was used: automated exposure control, adjustment of mA and/or kV according to patient size. COMPARISON: None. FINDINGS: Image quality: Excellent. Bones and teeth: Orbital brownlee are intact. Sinus brownlee show no fracture or deformity. Nasal bones and septum are intact. Visualized portions of the mandible demonstrate no fractures or subluxation. Zygomatic arches are intact. Pterygoid plates are intact. Visualized portions of the skull base and auditory canals are intact. Sinuses: Paranasal sinuses are aerated, without fluid levels, mucosal thickening, or mucoceles. Mastoid air cells are aerated. Soft tissues: Anterior scalp contusion. Vascular: Visualized vascular structures appear normal in the absence of contrast. Bony vascular foramina and canals are intact. IMPRESSION: Anterior scalp contusion without underlying fracture. No air-fluid level within the sinuses. Dictated by: Bola Carey M.D. on 12/06/2024 at 16:18 Approved by: Bola Carey M.D. on 12/06/2024 at 16:19 ECG Data Attestation: I personally reviewed and interpreted this ECG as follows: Prior ECG tracings: available for review Interpretation: Sinus tachycardia rate 113 AL interval 34 QRS [address] changes or T-wave inversions MDM Narrative Medical decision making narrative: MDM CC: Passing out coughing Complicating co-morbidities: Recent mycoplasma pneumonia Data collected from: Patient and family Medical records reviewed: Previous ED visit on November 24, he was noted to be hypoxic CT angio offered admission but patient went home. Saw his primary care provider on November 30 through rewrote antibiotics for 7 more days no need Differential considered: Cough syncope pulmonary embolism congestive heart failure ongoing pneumonia Exam documented above, pertinent findings include: Alert 23-year-old male clear breath sounds no respiratory distress abdomen soft no peripheral edema Lab Test results independently reviewed as above. Pertinent findings: WBC 9.8 hemoglobin 15.0 hematocrit 44 platelets 3 7th CMP sodium 138 potassium 3.9 chloride 101 carbon dioxide 28 BUN 14 creatinine 0.82 glucose 114 Troponin negative D-dimer 316, previously 709 Independently reviewed EKG as above sinus tachycardic Imaging studies independently reviewed: Chest x-ray no acute cardiopulmonary process CT face anterior scalp contusion no underlying fracture CT head no intracranial pathology Treatments: IV fluid and Mucinex Re-evaluations: Patient was noted to be persistently tachycardic which he was on his last visit as well. Heart rate did improve with some IV fluids. No significant wheezing conversational dyspnea or tachypnea present not requiring oxygen. Discussion: Patient 23-year-old male presenting today with coughing and then passing out. It sounds as though he was a cough syncopal episode where he passed out briefly. Imaging shows contusion he does have small laceration on his forehead which is already scabbed over. Steri-Strips were placed but purely to keep it closed it is not actively bleeding. Blood work is overall reassuring no significant anemia or electrolyte abnormality. With blood-tinged sputum also considered pulmonary embolism however D-dimer is less than 500 he has a known mycoplasma pneumonia I think unlikely. He was no evidence of sepsis he continues to be on appropriate antibiotics. He appears well. He reports that he can not lay down at night due to coughing. He was given a spacer and instructions on how to use it he does say that he has an albuterol inhaler at home. At this time all questions have been answered no need for any further workup Discharge Plan Departure Patient Disposition: Home Clinical Impression: Cough syncope, Mycoplasma pneumonia Instructions: DI for Syncope in Adults (Fainting) Activity Restrictions/Additional Instructions: *You have been diagnosed with cough syncope *What to do: You are still recovering from your pneumonia but no need for any further antibiotics. *Continue to take medications as directed Albuterol 2 puffs at night or as needed for coughing spells or shortness of breath every 4 hours Mucinex every 12 hours as needed for cough Finish antibiotics as prescribed *Follow up with your primary care provider in 2-3 days or call [phone] *Return to ER if you should have increasing shortness of breath, recurrent passing out chest pain or any new, worsening or concerning symptoms Prescriptions: New guaifenesin [Mucinex] 1,200 mg tablet extended release 12hr 1,200 mg PO Q12H PRN (Reason: cough) Qty: 20 0RF No Action cefdinir 300 mg capsule 300 mg PO BID Qty: 14 0RF doxycycline monohydrate 100 mg capsule 100 mg PO BID Qty: 14 0RF albuterol sulfate 90 mcg/actuation HFA aerosol inhaler 2 puff inhalation Q4-6H PRN (Reason: shortness of breath or wheezing) Qty: 8.5 0RF Referrals: Roscoe Goodwin ARNP [Primary Care Provider] - Stand Alone Forms: Patient Portal/API/Survey
[2024-12-06 19:15] LABS: D Dimer 316 ng/ml (<500)
[2024-12-06] MEDS: guaiFENesin ER 600 MG TAB PO (20:09)
== END 2024-12-06 20:18 | disposition home or self-care (01) ==
PROVIDERS: Emergency Medicine; Emergency Provider Emergency Medicine; Family Provider Pediatrics; PCP Registered Nurse Diabetes Educator
DX: R55 Syncope and collapse (principal); J15.7 Pneumonia due to Mycoplasma pneumoniae; R07.9 Chest pain, unspecified; E66.9 Obesity, unspecified; Z68.43 Body mass index [BMI] 50.0-59.9, adult
CPT/HCPCS: 36415; 70450; 70486; 71045; 80053; 82550; 83690; 83735; 83880; 84484; 85025; 85379; 85610; 85730; 93005; 96360; 99284

== ENCOUNTER → 2025-02-16 12:49 | Outpatient (CLI) | payer OTHER, SELFPAY ==
--- NOTE | 2025-02-16 16:07 | DIET.OUTPTC ---
Dietary Outpatient Consult Consult Date:02/16/25 Assessment:? 24 y M referred to dietitian for T2DM, HTN, BMI 60.0-69.9. Presents with spouse, who does most the meal prep/cooking. Reports was dx with DM in office and is getting labs drawn per PCP to confirm DM dx. Insurance did not cover Laurie. Since dx- has changed diet patterns from SSB to just drinking water or sugar free redbull x1/d and reducing CHO. Is feeling hungry. Doesn't like too many fruit/vegs- will do pineapple, apple, smoothies with mangos/berries and bacilio seeds and spinach, carrots. Diet recall: noon (wakes up late)- 3 eggs, 4-5 oz sirloin steak OR sausage OR sometimes if on the go will do special K with low fat milk 6-7pm- 6 oz chk, steak (4-5 oz), OR 6 oz pork with 1 cup mashed potatoes or corn sometimes apple post dinner Avg 91 g protein daily, avg 900 calories -w/o considering fat used in cooking GI symptoms: BM daily at T3 on bristol stool chart, had diarrhea 1 wk initially after switching dietary patterns but has since resolved PCP office 02/02/2510:06 Height 180.34 cm Weight 192.323 kg BMI 59.1 Starting weight 201.36 kg on 01/19/25 Activity: Gym 5x/wk for 1 hour, / w/ care trainer does cardio or weights, other days does cardio Pertinent Labs: 6.7% A1c 01/19/25 Nutrition Diagnosis:? Inadequate fiber intake r/t low CHO dietary pattern aeb diet recall with <10 g fiber daily Inadequate energy intake r/t food and nutrition related knowledge deficit aeb diet recall <1200 kcals with 5 hours activity weekly Interventions:? -This participant was very receptive. Provided appropriate educational handouts. Discussed the following topics: Completed intake assessment. Discussed barriers to care. Pathophysiology of T2DM HgA1c, its correlation to blood glucose numbers Plate Method, impact of macronutrients on blood sugar, meal timing, carbohydrate counting, pairing macronutrients and spreading out carbohydrates for better blood glucose management Recommended servings for carbohydrates at meals and snacks Meeting calories needs Sustainability of low carb, high protein diet, pros and cons Brainstormed appropriate meal plan based on food preferences Created SMART goals for patient self-care and success. Goals: -3pm snack/small meal following plate method -Adding whole wheat toast 2 slice and 1 cup fruit or smoothie to breakfast -Limit sausages to 1-2x/wk r/t to saturated fat content EER:? 45-60 g CHO at meals Monitoring/Evaluations:? F/u in 3-4 wks Electronically Signed by: Lana Suazo Clinical Dietitian [address] [address]
== END ==
LOC: DIET 12:50
PROVIDERS: PCP Registered Nurse Diabetes Educator; Referring Provider Registered Nurse Diabetes Educator
DX: E11.9 Type 2 diabetes mellitus without complications (principal); I10 Essential (primary) hypertension; Z68.44 Body mass index [BMI] 60.0-69.9, adult; Z71.3 Dietary counseling and surveillance
CPT/HCPCS: 97802

== ENCOUNTER → 2025-03-03 11:18 | Outpatient (CLI) | payer OTHER, SELFPAY ==
[2025-03-03 12:59] LABS: Hematocrit 47.4 % (41-53); Hemoglobin 15.9 g/dL (13.5-17.5); Mean Corpuscular HGB Conc 33.5 % (30-36); Mean Corpuscular Hemoglobin 27.4 PG (26-34); Mean Corpuscular Volume 81.9 fL (80-100); Platelet Count 244 X10^3/uL (150-400)
[2025-03-03 13:16] LABS: Alanine Aminotransferase 39 IU/L (<50); Albumin 4.3 g/dL (3.5-5.0); Albumin Globulin Ratio 1.3 (1.0-2.8); Alkaline Phosphatase 74 U/L (38-126); Blood Urea Nitrogen 14 mg/dL (9-20); Calcium 8.9 mg/dL (8.4-10.2); Carbon Dioxide 25 mmol/L (22-32); Chloride 103 mmol/L (98-107); Cholesterol 134 mg/dL (140-199); Estimated Glomerular Filt Rate > 60 mL/min (>60); Globulin 3.3 g/dL (1.7-4.1); Glucose 90 mg/dL (70-99); HDL Cholesterol 34 mg/dL (40-60); HEMOLYSIS 39 (0-50); Potassium 4.3 mmol/L (3.4-5.1); Sodium 139 mmol/L (137-145); Total Protein 7.6 g/dL (6.3-8.2); Triglycerides 59 mg/dL (35-150)
[2025-03-03 13:23] LABS: Hemoglobin A1C% w Est Avg Glu 6.2 % (4.0-6.0)
[2025-03-03 13:49] LABS: TSH w/ Reflex to FT4 1.22 uIU/mL (0.47-4.68)
[2025-03-03 16:21] LABS: Microalbumi Creatinin Ratio Ur 7.0 ug/mg CR (<30)
== END ==
PROVIDERS: PCP Registered Nurse Diabetes Educator; Referring Provider Registered Nurse Diabetes Educator; Visit Provider Registered Nurse Diabetes Educator
DX: E11.65 Type 2 diabetes mellitus with hyperglycemia (principal); I10 Essential (primary) hypertension
CPT/HCPCS: 36415; 80053; 80061; 82043; 82570; 83036; 84443; 85027